=== PATIENT | male | born 2000 | race Hispanic/Latino ===

== ENCOUNTER 2019-07-10 06:01 | Emergency (ER) | payer MEDICAID, OTHER ==
[2019-07-10] MEDS ORDERED: KETOROLAC TROMETHAMINE 60 MG/2 ML VIAL ONE (06:17)
== END 2019-07-10 07:01 | disposition home or self-care (01) ==
LOC: EDH 06:01
DX: M62.830 Muscle spasm of back (principal); M54.6 Pain in thoracic spine
CPT/HCPCS: 96372; 99283; J1885